=== PATIENT | male | born 1965 | race Caucasian/White ===

== ENCOUNTER 2017-11-30 15:21 | Emergency (ER) | payer BC, OTHER ==
[~2017-11-30] VITALS: Ht 177.8 cm; Wt 86.2 kg
[2017-11-30 15:21] VITALS: BP 0/0
[2017-11-30] MEDS ORDERED: EPINEPHrine HCL 1 MG/10 ML SYRG IV ONE (15:22)
[2017-11-30] MEDS ORDERED: CALCIUM CHLOR(10%) 100MG/ML 10ML SYRINGE IV ONE (15:22)
[2017-11-30] MEDS ORDERED: SODIUM BICARBONATE 8.4% INJ 50ML SYRINGE IV ONE (15:22)
[2017-11-30] MEDS ORDERED: SODIUM BICARBONATE 8.4% INJ 50ML SYRINGE ONE (15:33)
== END 2017-11-30 18:32 | disposition expired ==
LOC: ER 15:21 → EDBD 15:21 → ER 18:32
DX: I46.9 Cardiac arrest, cause unspecified (principal)
CPT/HCPCS: 31500; 92950; 99285; J0171